=== PATIENT | male | born 1960 | race Caucasian/White ===

== ENCOUNTER → 2017-03-17 | Outpatient (REF) ==
[~2017-03-17] MED LIST: AMOXICILLIN 8751 TAB PO; CIPRO 500MG TA500 MG PO; FEOSOL65 MG PO; PERCOCET 325 MG1 TA2 PO; SENOKOT S 50 MG1 TAB PO; SYNTHROID0.088 MG/T PO; VITAMIN C500 MG PO
== END ==
LOC: WSOH 13:00
DX: Z02.89 Encounter for other administrative examinations (principal)

== ENCOUNTER 2019-11-24 23:02 | Emergency (ER) | payer BC ==
[~2019-11-24] VITALS: Ht 188 cm; Wt 106.8 kg
[2019-11-24] MEDS ORDERED: ZYRTEC 10MG10 MG PO (23:55)
[2019-11-25 00:07] LABS: BASO % 0.3 % (0.0-2.0); EOS # 0.1 (0.0-0.7); EOS % 0.6 % (0-4.0); GRAN # 7.1 (1.4-6.5); GRAN % 76.6 % (42.2-75.2); HEMATOCRIT 41.5 % (42.0-52.0); LYMPH # 1.2 (1.2-3.4); LYMPH % 12.6 % (20.0-51.0); MEAN CELL VOLUME 86 fl (80.0-100.0); MEAN CORPUSCULAR HEMOGLOBIN 29 pg (27.0-31.0); MEAN CORPUSCULAR HGB CONC 34 g/dl (33.0-37.0); MEAN PLATELET VOLUME 9.4 fl (7.4-10.4); MONO # 0.9 (0.1-0.6); MONO % 9.6 % (1.7-9.3); PLATELET COUNT 183 K/mm3 (130-400); RED BLOOD COUNT 4.82 M/mm3 (4.20-5.60); REDCELL DISTRIBUTION WIDTH-CV 12.9 % (11.5-14.5)
[2019-11-25 00:31] LABS: ALBUMIN 3.7 gm/dL (3.5-5.0); BILIRUBIN,TOTAL 0.4 mg/dL (0.0-1.0); CALCIUM 8.4 mg/dL (8.4-10.2); CREATININE, serum 1.02 (0.66-1.25); POTASSIUM 3.8 mmol/L (3.4-5.0); TOTAL PROTEIN 7.5 gm/dL (6.4-8.2)
[2019-11-25 00:55] LABS: C-REACTIVE PROTEIN 15.3 mg/dL (0.0-0.9)
[2019-11-25 01:26] VITALS: TEMP 97.8
[2019-11-25 01:48] VITALS: BP 121/87; PULSE 77
== END 2019-11-25 01:44 | disposition home or self-care (01) ==
LOC: COL.ER 23:02
PROVIDERS: Emergency Medicine
DX: B34.9 Viral infection, unspecified (principal); E03.9 Hypothyroidism, unspecified
CPT/HCPCS: J1200; J2930; J3010; J7030

== ENCOUNTER 2019-12-06 15:12 | Inpatient (IN) | payer BC ==
[~2019-12-06] VITALS: Ht 188 cm; Wt 106.5 kg
[~2019-12-06 15:12] MED LIST changes: -NORCO 325 MG-51 TAB PO; -ZOFRAN 4MG T4 MG/TAB PO
[2019-12-06 18:23] VITALS: BP 149/97; PULSE 92; TEMP 99.3
--- NOTE | 2019-12-06 18:30 | NUR ---
PATIENT ADMITED INTO ROOM 348 FROM ER WITH PANCREATITIS. PATIENT C/O GASTRIC PAIN AND BACK ACHE THAT IS WORSE WHEN HE EATS. NO APPETITE. LIPASE WAS 854. ER REPORTED CT SHOWED PANCREATITIS. A&O. VSS. NOTED RED FACE WITH BLANCHING. PATIENT REPORTS RECENTLY TAKING PO AUGMENTIN & PREDNISONE FOR A SINUS INFECTION. DIRECTOR OF LAND TAKING OVER PATIENT'S CARE.
--- NOTE | 2019-12-06 18:40 | NUR ---
Patient brought to room via wheel chair by ER staff. Ambulates into bathroom. Voids without difficulty. Gets into the bed. Rates pain in abd and low back 3/10 that is constant and not really sharp. INT to left wrist.
--- NOTE | 2019-12-06 20:15 | NUR ---
Pt. laying in bed at this time. Pt. is A&OX3, assessment complete. IV to lt. hand patent, IV fluids infusing per or ders. Pt. reports abd pain at a 6 on pain scale at this time. Gave pain meds per orders. Pt. denies further needs, call light within reach.
[2019-12-06 21:00] VITALS: BP 121/74; PULSE 105; TEMP 100.6
--- NOTE | 2019-12-06 21:45 | NUR ---
Pt. has a temp of 100.6. Giving Tylenol at this time.
[2019-12-07 01:01] VITALS: BP 123/75; PULSE 96; TEMP 98.8
[2019-12-07 03:44] VITALS: BP 118/75; PULSE 94; TEMP 99.8
[2019-12-07 07:38] LABS: BASO % 0.2 % (0.0-2.0); EOS # 0.1 (0.0-0.7); EOS % 0.3 % (0-4.0); GRAN # 15.2 (1.4-6.5); GRAN % 85.1 % (42.2-75.2); HEMOGLOBIN 14.2 g/dl (13.5-18.0); LYMPH # 1.1 (1.2-3.4); LYMPH % 6.1 % (20.0-51.0); MEAN CELL VOLUME 87 fl (80.0-100.0); MEAN CORPUSCULAR HEMOGLOBIN 29 pg (27.0-31.0); MEAN CORPUSCULAR HGB CONC 33 g/dl (33.0-37.0); MEAN PLATELET VOLUME 9.6 fl (7.4-10.4); MONO # 1.4 (0.1-0.6); MONO % 7.8 % (1.7-9.3); PLATELET COUNT 222 K/mm3 (130-400); RED BLOOD COUNT 4.92 M/mm3 (4.20-5.60)
[2019-12-07 07:55] VITALS: BP 126/73; PULSE 93; TEMP 99.2
[2019-12-07 07:55] LABS: ALBUMIN 3.5 gm/dL (3.5-5.0); BILIRUBIN,TOTAL 1.3 mg/dL (0.0-1.0); CALCIUM 7.9 mg/dL (8.4-10.2); CHOLESTEROL RISK RATIO 2.6; CREATININE, serum 0.92 (0.66-1.25); POTASSIUM 3.9 mmol/L (3.4-5.0); TOTAL PROTEIN 6.9 gm/dL (6.4-8.2)
--- NOTE | 2019-12-07 11:02 | NUR ---
Family was present. I visited, listened, provided spiritual care and prayed with the family.
--- NOTE | 2019-12-07 11:36 | NUR ---
Patient resting in bed upon shift assessment. States his pain has significantly decreased since arriving last night but he can feel it startingt to creep back as it is getting uncomfortable to lay on his side again. States that he does not have any nausea at this time. Per Dr. Fitzgerald, will advance diet to clear liquids and switch to oral pain medications, if patient tolerates, possible discharge later in the day. Patient has no further concerns at this time. at bedside. Call light in reach.
[2019-12-07 12:10] VITALS: BP 123/86; PULSE 92; TEMP 98.4
--- NOTE | 2019-12-07 12:27 | NUR ---
Plan: To return home with Ilana [phone] as care support. Patient also reported that he would like listed as EMR. Patient indicated that is also listed as DPOA, and that they do have a form that may need to be bought up to the facility and filed here. patient resides near [facility] Assess: SW met with patient and at patients bedside. Patient gave permission for to be present during interview. Patient denied the use of DME, and he indicated that his PCP is Dr. Reyna. SM reported that he does not have any upcoming appts. Patient reported that he gets his medications from [facility] pharmacy with no concerns. Patiend declined a need for [facility] at this time. Patient was educated about community resources.
[2019-12-07 15:57] VITALS: BP 123/71; PULSE 95; TEMP 98.9
[2019-12-07] MEDS ORDERED: NORCO 325 MG-51 TAB PO (16:09)
[2019-12-07] MEDS ORDERED: ZOFRAN 4MG T4 MG/TAB PO (16:09)
--- NOTE | 2019-12-07 17:57 | NUR ---
Patient discharged to home accompanied by his . Patient has been tolerating clear liquids since lunch time and has not had any pain medication since this morning. States he is just having some very mild cramping pain which he thinks is his "gut waking up" after not having anything to eat for 24 hours. Patient sent home with scripts for [place] and Zofran. All discharge instructions reviewed including follow-up labs to complete in 3 days and following up with his primary care provider in a week. Patient and his express no further questions or concerns regarding discharge. Patient wheeled out by MIGUEL ANGEL Esteban.
== END 2019-12-07 18:04 | disposition home or self-care (01) | DRG 440 ==
LOC: COL.ER 15:12 → SURG 16:41 → COL.ER 16:41 → SURG 16:41
PROVIDERS: Nurse Practitioner Family; ADMIT Internal Medicine
DX: K85.00 Idiopathic acute pancreatitis without necrosis or infection (principal); E03.9 Hypothyroidism, unspecified; J30.2 Other seasonal allergic rhinitis; R73.03 Prediabetes; Z85.46 Personal history of malignant neoplasm of prostate; Z88.2 Allergy status to sulfonamides
CPT/HCPCS: 99222-AI; 99232-AI; G0378; J1650; J2270; J2405; J7030; Q9967

== ENCOUNTER → 2019-12-06 | Outpatient (CLI) | payer BC ==
[~2019-12-06] MED LIST changes: +NORCO 325 MG-51 TAB PO; +ZOFRAN 4MG T4 MG/TAB PO; +ZYRTEC 10MG10 MG PO
[2019-12-06 14:41] LABS: AMYLASE 87 U/L (30-110); LIPASE 854 U/L (23-300)
== END ==
LOC: ZCOL.LAB 12:54
PROVIDERS: Family Medicine
DX: R10.13 Epigastric pain (principal)

== ENCOUNTER 2024-08-21 21:32 | Inpatient (IN) | payer BC ==
[~2024-08-21] VITALS: Ht 188 cm; Wt 101.9 kg
[~2024-08-21 21:32] MED LIST changes: +NORCO 325 MG-51 TAB PO; +ZOFRAN 4MG T4 MG/TAB PO
[2024-08-21 23:26] LABS: BASO % 0.1 % (0.0-2.0); EOS # 0.1 K/mm3 (0.0-0.7); EOS % 0.5 % (0.0-4.0); GRAN # 10.5 K/mm3 (1.4-6.5); GRAN % 74.8 % (42.2-75.2); HEMOGLOBIN 15.1 g/dl (13.5-18.0); LYMPH # 1.9 K/mm3 (1.2-3.4); LYMPH % 13.6 % (20.0-51.0); MEAN CELL VOLUME 89 fl (80.0-100.0); MEAN CORPUSCULAR HEMOGLOBIN 30 pg (27-31); MEAN CORPUSCULAR HGB CONC 34 g/dl (33.0-37.0); MONO # 1.5 K/mm3 (0.1-0.6); MONO % 10.6 % (1.7-9.3); PLATELET COUNT 240 K/mm3 (130-400); RED BLOOD COUNT 4.97 M/mm3 (4.20-5.60); REDCELL DISTRIBUTION WIDTH-CV 12.6 % (11.5-14.5)
[2024-08-21] MEDS ORDERED: Morphine 4 MG/ML VIAL IV ONE (23:30)
[2024-08-21] MEDS ORDERED: NS 1,000 ML IV ONE (23:30)
[2024-08-21 23:45] LABS: ALBUMIN 3.3 g/dL (3.4-4.8); BILIRUBIN,TOTAL 0.2 mg/dL (0.2-1.2); CALCIUM 8.9 mg/dL (8.4-10.2); CREATININE, serum 1.01 mg/dL (0.72-1.25); TOTAL PROTEIN 7.2 g/dl (6.2-8.1)
[2024-08-22] VITALS (12 sets, daily range): BP systolic 105–148; BP diastolic 68–92; PULSE 58–89; TEMP 97.3–97.9
[2024-08-22] MEDS ORDERED: HYDROmorphone 0.5 MG/0.5 ML SYRINGE IV ONE ×2 (01:00→02:00)
[2024-08-22] MEDS ORDERED: HYDROmorphone 0.5 MG/0.5 ML SYRINGE IV PRN (01:45)
[2024-08-22] MEDS ORDERED: Ondansetron 4 MG/2 ML VIAL IV PRN ×3 (01:45→15:00)
--- NOTE | 2024-08-22 05:44 | NUR ---
63 yo male admitted for further care and management of possible sepsis likely secondary to a skin/soft tissue source with possibility of a L foot abscess. ht 188 cm wt 103.2 kg SCr 1.01 with estimated CrCL >60 ml/min half life 12.7 hours Plan: Patient received an initial loading dose of vancomycin 2500 mg x1 in the ED (24.2 mg/kg); will follow with a maintenance regimen of vancomycin 1250 mg q12h to target a goal trough of 15-20 mcg/ml (if indeed superficial skin/soft tissue infection, trough goal could be lowered to 10-15 mcg/ml). Will follow patient's renal function, micro data, and vancomycin levels as indicated to assess for any necessary changes to regimen. Thank you for this dosing consult.
[2024-08-22] MEDS ORDERED: COLCRYS0.6 MG PO (07:49)
[2024-08-22] MEDS ORDERED: GLUCOSAMINE & C1 CA2 PO (07:51)
[2024-08-22] MEDS ORDERED: CENTRUM SILVER1 TAB PO (07:51)
[2024-08-22] MEDS ORDERED: Pantoprazole 40 MG in NS 10 ML IV SCH (09:00)
[2024-08-22] MEDS ORDERED: Cetirizine 10 MG TAB PO SCH (09:00)
[2024-08-22 09:17] LABS: BASO % 0.2 % (0.0-2.0); EOS # 0.1 K/mm3 (0.0-0.7); EOS % 1.3 % (0.0-4.0); GRAN # 7.7 K/mm3 (1.4-6.5); GRAN % 70.3 % (42.2-75.2); HEMATOCRIT 41.7 % (42.0-52.0); HEMOGLOBIN 13.9 g/dl (13.5-18.0); LYMPH # 1.9 K/mm3 (1.2-3.4); LYMPH % 17.3 % (20.0-51.0); MEAN CELL VOLUME 91 fl (80.0-100.0); MEAN CORPUSCULAR HEMOGLOBIN 30 pg (27-31); MEAN CORPUSCULAR HGB CONC 33 g/dl (33.0-37.0); MEAN PLATELET VOLUME 9.4 fl (7.4-10.4); MONO # 1.1 K/mm3 (0.1-0.6); MONO % 10.2 % (1.7-9.3); PLATELET COUNT 238 K/mm3 (130-400); RED BLOOD COUNT 4.61 M/mm3 (4.20-5.60)
[2024-08-22 09:34] LABS: CALCIUM 8.4 mg/dL (8.4-10.2); CREATININE, serum 1.05 mg/dL (0.72-1.25); POTASSIUM 4.5 mEq/L (3.5-4.5)
--- NOTE | 2024-08-22 09:35 | NUR ---
Pt arrived from ED via wheelchair. Pt used crutches to get to bed. Assessment completed. Pt left great toe, ball of foot is red, warm to touch, purulant drainage noted. Pt had I&D completed in ED and is now draining. Pt states pain is much better since drainage. Pt oriented to room and POC. Pt verbalized understanding. Pt has [place], cellphone, car keys, and right shoe and sock. We are awaiting ortho consult for possible surgery.
[2024-08-22] MEDS ORDERED: PATADAY5 ML OU (09:42)
--- NOTE | 2024-08-22 10:40 | NUR ---
workers compensation claims analyst met with patient and his Ramila, Sindhu# [phone], to discuss discharge planning. Patient and his live in [place]. PCP is Dr. Reyna, Pharmacy is [facility] in [place]. No issues affording medications. Insurance is [employer]. Patient has a living will in the EMR which is still active. DME is crutches but patient is going to look at getting a knee scooter to make work easier for him. Patient reports to be independent with ADLS at home and has transportation to go to and from appointments. Patient plans to return home at time of discharge. DIscharge plan: Home
--- NOTE | 2024-08-22 10:40 | NUR ---
Paged Jim Valderrama at [phone] to claify which provider will come see the patient and the possible plans for the day. Awaiting return page.
--- NOTE | 2024-08-22 11:40 | NUR ---
This RN had not heard from BRO Fernandez. Notified Lorraine Escobedo to assess situation. Updated on pt provided and she states she will be in to see the patient soon.
--- NOTE | 2024-08-22 11:53 | NUR ---
Verbal report given to primary nurse. Questions enertained and answered. Pt is napping. Primary nurse resuming care.
--- NOTE | 2024-08-22 13:26 | NUR ---
Initial visit; Patient and his are very nice people, very friendly and open. Press Writer spoke briefly with Will and after their visit Press Writer will happily keep Jason and his in her prayers.
[2024-08-22] MEDS ORDERED: fentaNYL 50 MCG/ML 2 ML VIAL ONE (13:31)
[2024-08-22] MEDS ORDERED: Lidocaine PF 2% (20 MG/ML) 5 ML VIAL ONE (13:33)
[2024-08-22] MEDS ORDERED: Glycopyrrolate 0.2 MG/ML 1 ML VIAL ONE (13:33)
--- NOTE | 2024-08-22 13:36 | NUR ---
Pt left floor at 1334 for OR. Consent for incision and drainage obitained and PACU given report.
[2024-08-22] MEDS ORDERED: oxyCODONE 5 MG TAB PO PRN (14:45)
[2024-08-22] MEDS ORDERED: Naloxone 0.4 MG/ML VIAL IV PRN (14:45)
[2024-08-22] MEDS ORDERED: hydrALAZINE 20 MG/ML 1 ML VIAL IV PRN (15:00)
[2024-08-22] MEDS ORDERED: droPERidol 2.5 MG/ML 2 ML VIAL IV PRN (15:00)
[2024-08-22] MEDS ORDERED: Vancomycin 1.25 GM,Special Dose/Pharmacy Prepared 1.25 GM in NS 250 ML IV SCH (15:00)
[2024-08-22] MEDS ORDERED: fentaNYL 50 MCG/ML 1 ML SYRINGE/VIAL [PACU/SDC ONLY] IV PRN (15:00)
[2024-08-22] MEDS ORDERED: HYDROmorphone 1 MG/1 ML SYRINGE [PACU/SDC ONLY] IV PRN (15:00)
--- NOTE | 2024-08-22 15:10 | NUR ---
Pt returned to floor at 1510. Pt is sitting up in bed eating ice chips. Pt denies any real pain stating it is much better than before. Dressing is CDI and boot in place. Ice pack in place. Pt denies any needs at this time. Call light within reach. Will continue with POC.
[2024-08-22] MEDS ORDERED: Acetaminophen 500 MG TAB PO SCH (15:37)
--- NOTE | 2024-08-22 20:01 | NUR ---
Patient assessed at this time, see shift assessment, denies pain or discomfort, INT infusing well on right forearm, dressing to left foot clean, dry and intact, with boot on, ambulated to bathroom with crutches on, SBA, denies further needs, call light and personal items within reach, will continue to monitor.
[2024-08-23] VITALS (11 sets, daily range): BP systolic 108–130; BP diastolic 66–81; PULSE 72–97; TEMP 97.7–100
--- NOTE | 2024-08-23 02:34 | NUR ---
Patient complained of pain to his left foot, PS of 6/10, medicated with oxycodone, ICE pack on, denies further needs, will continue to monitor.
[2024-08-23 07:17] LABS: BASO % 0.5 % (0.0-2.0); EOS # 0.2 K/mm3 (0.0-0.7); EOS % 2.7 % (0.0-4.0); GRAN # 5.3 K/mm3 (1.4-6.5); GRAN % 63.9 % (42.2-75.2); HEMOGLOBIN 14.7 g/dl (13.5-18.0); LYMPH # 1.9 K/mm3 (1.2-3.4); LYMPH % 22.7 % (20.0-51.0); MEAN CELL VOLUME 88 fl (80.0-100.0); MEAN CORPUSCULAR HEMOGLOBIN 30 pg (27-31); MEAN CORPUSCULAR HGB CONC 34 g/dl (33.0-37.0); MEAN PLATELET VOLUME 9.7 fl (7.4-10.4); MONO # 0.8 K/mm3 (0.1-0.6); MONO % 9.8 % (1.7-9.3); PLATELET COUNT 232 K/mm3 (130-400); RED BLOOD COUNT 4.91 M/mm3 (4.20-5.60)
[2024-08-23 08:36] LABS: CALCIUM 8.5 mg/dL (8.4-10.2); CREATININE, serum 1.01 mg/dL (0.72-1.25); POTASSIUM 4.6 mEq/L (3.5-4.5)
[2024-08-23] MEDS ORDERED: Influenza Virus Vaccine, Trivalent '24-25 0.5 ML SYRINGE IM SCH (09:00)
--- NOTE | 2024-08-23 09:45 | NUR ---
Air Analysis Engineering Technician met with patient to check in. Patient still plans to return home at time of discharge. Patient believes he has DPOA-HC designating his , Ramila.
--- NOTE | 2024-08-23 09:57 | NUR ---
pt a&ox4 resting in bed. [facility] nursing home aide and instructor in with patient to administer morning medications. pt reports some stabbing pains in his left foot but does not need pain medication at this time. dressing is cdi. pt is NWB to his LLE with crutches. zosyn is infusing into right forearm IV. pt tolerating breakfast without difficulty. pt denies needs at this time. call light in reach.
--- NOTE | 2024-08-23 11:53 | NUR ---
Report given on patient to primary nurse. Questions entertained and answered. Care given over to primary nurse.
--- NOTE | 2024-08-23 17:30 | NUR ---
Patient A&Ox4. VSS. IV CDI, fluids infusing. Independent in the room with crutches, NWB LF foot. No further needs expressed. Call light within reach
--- NOTE | 2024-08-23 20:30 | NUR ---
Patient resting in bed, at bedside, assessed at this time, reports minimal pain at this time, dressing to left foot clean dry and intact with boot on, uses crutches with no issues with it, denies further needs, call light and personal items within reach, refused ice at this time, will continue to monitor.
--- NOTE | 2024-08-23 23:59 | NUR ---
Patient awake at this time, reports pain at 2/10, scheduled tylenol given.
[2024-08-24] VITALS (13 sets, daily range): BP systolic 126–154; BP diastolic 69–85; PULSE 74–93; TEMP 97.8–99
[2024-08-24 06:05] LABS: BASO # 0.1 K/mm3 (0.0-0.2); BASO % 0.6 % (0.0-2.0); EOS # 0.4 K/mm3 (0.0-0.7); EOS % 3.6 % (0.0-4.0); GRAN # 6.5 K/mm3 (1.4-6.5); GRAN % 66.8 % (42.2-75.2); HEMATOCRIT 42.1 % (42.0-52.0); HEMOGLOBIN 14.5 g/dl (13.5-18.0); LYMPH # 1.8 K/mm3 (1.2-3.4); LYMPH % 18.1 % (20.0-51.0); MEAN CELL VOLUME 87 fl (80.0-100.0); MEAN CORPUSCULAR HEMOGLOBIN 30 pg (27-31); MEAN CORPUSCULAR HGB CONC 34 g/dl (33.0-37.0); MEAN PLATELET VOLUME 8.8 fl (7.4-10.4); MONO % 10.4 % (1.7-9.3); PLATELET COUNT 206 K/mm3 (130-400); RED BLOOD COUNT 4.86 M/mm3 (4.20-5.60); REDCELL DISTRIBUTION WIDTH-CV 12.5 % (11.5-14.5)
[2024-08-24 06:25] LABS: CALCIUM 8.7 mg/dL (8.4-10.2); CREATININE, serum 0.98 mg/dL (0.72-1.25); POTASSIUM 4.5 mEq/L (3.5-4.5)
--- NOTE | 2024-08-24 07:51 | NUR ---
Patient sitting up in bed on the computer. A&Ox4. VSS. IV CDI. LF foot elevated on pillow and walking shoe on. Dressing CDI. Denies pain. Call light within reach
--- NOTE | 2024-08-24 12:05 | NUR ---
Data: Patient accepted spiritual care visit offered during Vascular Technologist rounds. Patient expects to be discharged today. Life review, primarily of employment and family. Assessment: Processed important upcoming events with Vascular Technologist. Plan of care: Vascular Technologist provided supportive listening and prayer. Patient thanked Vascular Technologist for visit. Chaplains will remain available as needed/requested while Patient is admitted to this hospital.
--- NOTE | 2024-08-24 20:00 | NUR ---
Patient in bed with his computer browsing old pictures of him, reports minimal pain, IV infusing well on right forearm, denies further needs, call light and personal items within reach, will continue to monitor.
[2024-08-25 00:58] VITALS: BP_SYST 154
[2024-08-25 03:48] VITALS: BP 127/85; PULSE 80; TEMP 97.5
[2024-08-25 05:00] VITALS: BP_SYST 127
--- NOTE | 2024-08-25 07:41 | NUR ---
PAtient awake in bed, A&Ox4. VSS. IV CDI. LF foot dressing CDI. Denies pain and discomfort. Call light within reach
[2024-08-25 08:09] VITALS: BP 139/74; PULSE 85; TEMP 97.6
[2024-08-25 09:00] VITALS: BP_SYST 139
[2024-08-25] MEDS ORDERED: CEPHALEXIN500 M1 PO (10:28)
[2024-08-25] MEDS ORDERED: ROXICODONE 55 MG/TAB PO (10:30)
--- NOTE | 2024-08-25 10:57 | NUR ---
Discharge paperwork reviewed with the patient. PAtient verbalized an understanding to follow doctors orders. IV removed, tip intact. Gauze and coban applied. Dressing changed LF foot. walking shoe placed back on. Patient taken by wheelchair to vehicle with personal belongings. No further needs expressed
== END 2024-08-25 10:57 | disposition home or self-care (01) | DRG 854 ==
LOC: COL.ER 21:32 → SURG 08-22 01:35
PROVIDERS: Emergency Medicine; Nurse Practitioner Family; Orthopaedic Surgery; ADMIT Hospitalist
PROC: 0SBN0ZZ Excision of Left Metatarsal-Phalangeal Joint, Open Approach (ICD-10-PCS; principal; 2024-08-22 14:00)
DX: A41.9 Sepsis, unspecified organism (principal); L02.612 Cutaneous abscess of left foot; L03.032 Cellulitis of left toe; M10.9 Gout, unspecified; E03.9 Hypothyroidism, unspecified; R73.03 Prediabetes; R73.9 Hyperglycemia, unspecified; F10.20 Alcohol dependence, uncomplicated; Z79.899 Other long term (current) drug therapy; Z88.2 Allergy status to sulfonamides; Z85.46 Personal history of malignant neoplasm of prostate; Z83.3 Family history of diabetes mellitus; Z79.890 Hormone replacement therapy
CPT/HCPCS: J1171; J2270; J2470; J2543; J2704; J2795; J3010; J3370; J7030; J7040; J7050; Q3014